=== PATIENT | male | born 1935 | race Caucasian/White ===

== ENCOUNTER 2023-09-18 09:07 | Day surgery (SDC) | payer MEDICARE, SELFPAY ==
[2023-09-04 12:09] VITALS: BP 140/77; PULSE 65; RESP 18; TEMP 36.2; O2SAT 96; BMI 30.3
[2023-09-18] VITALS (20 sets, daily range): BP systolic 123–165; BP diastolic 67–87; PULSE 55–90; RESP 12–20; TEMP 33–36.7; O2SAT 93–97; BMI 30.1; BMI 32.1
--- OUTSIDE RECORDS SUMMARY | 2023-09-18 09:30 | XMS_ITS | CCD ---
Author Name Unknown Address [email or web address] [place] [address] Organization [facility] Care Team Providers Care 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 Name Role Phone OSMAR ELDER Primary Care Physician [phone] OSMAR ELDER Attending Unavailable OSMAR ELDER Referring Unavailable Jerrod CROFT, Osmar Rivera Unavailable Osmar Elder MD Primary Care Provider [phone] Niya CROFT, Ramos Thacker Unavailable [phone] Dang Warren MD Unavailable Elisabeth Plaza MD Unavailable [phone] Niranjan WHITING Attending Unavailable WHITING, Niranjan Hugo Attending Unavailable WHITING, Niranjan Hugo Attending Unavailable WHITING, Niranjan Hugo Attending Unavailable ELISABETH NAGEL Attending Unavailable WHITING, Niranjan Hugo Attending Unavailable WHITING, Niranjan Hugo Admitting Unavailable Niranjan WHITING Attending Unavailable Allergies Allergy Classification Reported Allergen(s) Allergy Type Date of Onset Reaction(s) Facility (5 sources) Amoxicillin; Translations: [amoxicillin] Drug Allergy 3 Eruption of skin (disorder), Rash [facility] (4 sources) Penicillins; Translations: [penicillins] Drug allergy Eruption of skin (disorder) [facility] (1 source) Penicillin V Drug Allergy 3 Rash [facility] (1 source) Streptomycin Drug Allergy 9 [facility] Medications Current Medications Medication Drug Class(es) Dates Sig (Normalized) Sig (Original) [id number] actuat albuterol 0.09 mg/actuat metered dose inhaler (1 source) beta2-Adrenergi c Agonist Start: 01-09-2023 take 2 puff(s) by mouth every six hours as needed albuterol HFA 90 mcg/act inhaler Indications: Asthma, unspecified asthma severity, unspecified whether complicated, unspecified whether persistent ([facility]) INHALE 2 PUFFS BY MOUTH EVERY 6 HOURS NEEDED 8.5 g 3 01/09/2023 Active cholecalciferol 0.025 mg oral tablet (1 source) Vitamin D cholecalciferol (Vitamin D3) 25 MCG (1000 UT) tablet 1 (one) time each day at the same time. 0 Active doxycycline hyclate 100 mg oral capsule (2 sources) Tetracycline-cl ass Drug Start: 08-25-2023 End: 09-01-2023 take 1 capsule by mouth once daily doxycycline hyclate 100 mg Cap 100 mg = 1 cap(s), Oral, Daily, X 7 day(s), # 7 cap(s), Refills(s) 0, Pharmacy: [facility]/pharmacy #[id number], 173, cm, 07/29/23 13:54:00 EST, Height/Length Dosing, 85.5, kg, 07/29/23 13:54:00 EST, Weight Dosing Start Date: 08/25/23 Stop Date: 09/01/23 Status: Ordered Start: 06-05-2022 take 1 tablet by orion th twice daily doxycycline hyclate 100 mg Tab 100 mg = 1 tab(s), Oral, BID, # 28 tab(s), Refills(s) 0, Pharmacy: [facility]/pharmacy #[id number], 173, cm, 06/05/22 11:39:00 EST, Height/Length Dosing, 84, kg, 06/05/22 11:39:00 EST, Weight Dosing Start Date: 06/05/22 Status: Ordered DULoxetine 30 mg delayed release oral capsule (3 sources) Serotonin and Norepinephrine Reuptake Inhibitor Start: 04-16-2023 End: 04-10-2024 duloxetine 30 mg oral delayed release capsule 30 mg = 1 cap(s) Start Date: 05/20/23 Status: Ordered fluorouracil 50 mg/ml topical cream (1 source) Nucleoside Metabolic Inhibitor Start: 02-27-2023 fluorouracil (Efudex) 5 % cream Apply 1 application topically Daily as needed. 0 02/27/2023 Active rosuvastatin calcium 10 mg oral tablet (4 sources) HMG-CoA Reductase Inhibitor Start: 06-05-2022 take 1 tablet by mouth once daily rosuvastatin (Crestor) 10 MG tablet Indications: Hyperlipidemia, unspecified (CMS/HCC) TAKE 1 TABLET BY MOUTH EVERY DAY 90 tablet 3 02/06/2023 Active sildenafil 100 mg oral tablet (1 source) Phosphodiesterase 5 Inhibitor Start: 03-20-2023 End: 03-19-2024 take 0.5-1 tablets by mouth once daily as needed sildenafil (Viagra) 100 MG tablet Indications: Other male erectile dysfunction Take 0.5-1 tablets (50-100 mg) by mouth Daily as needed for erectile dysfunction. 30 tablet 3 03/20/2023 03/19/2024 Active Testosterone (4 sources) Androgen Start: 09-02-2019 apply 1.25 g topically once daily in the morning AndroGel 1.25 g Topical, qAM, Refills(s) 0 Start Date: 09/02/19 Status: Ordered testosterone (An drogel) 25 MG/2.5GM (1%) gel Place 25 mg on the skin See administration instructions. Every other day 0 Active triamcinolone acetonide 1 mg/ml topical cream (1 source) Corticosteroid Start: 02-27-2023 triamcinolone (Kenalog) 0.1 % cream Apply 1 application topically 2 (two) times a day as needed. 0 02/27/2023 Active vitamin B12 (3 sources) Vitamin B12 Start: 09-02-2019 Vitamin B12 1, 000 mcg, Refills(s) 0 Start Date: 09/02/19 Status: Ordered Vitamin D3 (3 sources) Start: 09-20-2020 Vitamin D3 25 mcg Start Date: 09/20/20 Status: Ordered Problems Active Problems Problem Classification Problem Date Documented Date Episodic/Chronic Asthma (1 source) Mild intermittent asthma; Translations: [Mild intermittent asthma, uncomplicated] Onset: 03-14-2023 08-08-2023 Chronic Calculus of urinary tract (6 sources) Kidney stone 02-29-2020 Episodic Disorders of lipid metabolism (1 source) Pure hypercholesterolemia; Translations: [Pure hypercholesterolemia, unspecified] Onset: 03-14-2023 03-20-2023 Chronic Esophageal disorders (4 sources) Gastroesophageal reflux disease; Translations: [Gastroesophageal reflux disease without esophagitis] Onset: 03-14-2023 02-29-2020 Chronic Genitourinary symptoms and ill-defined conditions (6 sources) Urge incontinence of urine 02-29-2020 Chronic Genitourinary symptoms and ill-defined conditions (6 sources) Increased frequency of urination; Translations: [Nocturia] 02-29-2020 Episodic Hyperplasia of prostate (9 sources) Benign prostatic hypertrophy with outflow obstruction; Translations: [Benign prostatic hyperplasia with lower urinary tract symptoms] Onset: 09-04-2022 Chronic Nutritional deficiencies (1 source) Vitamin D deficiency; Translations: [Vitamin D deficiency, unspecified] Onset: 03-14-2023 03-14-2023 Chronic Osteoarthritis (1 source) Degenerative joint disease involving multiple joints; Translations: [Polyosteoarthritis, unspecified] Onset: 03-14-2023 03-14-2023 Chronic Other circulatory disease (3 sources) Low blood pressure 02-29-2020 Episodic Other diseases of kidney and ureters (1 source) Urinary tract obstruction; Translations: [Other obstructive and reflux uropathy] Onset: 09-04-2022 Episodic Other endocrine disorders (2 sources) Testicular hypofunction; Translations: [Testicular hypofunction] Onset: 09-04-2022 Chronic Other endocrine disorders (3 sources) Hypogonadism 09-02-2019 Chronic Other endocrine disorders (3 sources) Male hypogonadism 02-29-2020 Chronic Other nervous system disorders (1 source) Polyneuropathy; Translations: [Polyneuropathy, unspecified] Onset: 08-08-2023 08-08-2023 Chronic Other nutritional; endocrine; and metabolic disorders (3 sources) Body mass index 25-29 - overweight 03-21-2020 Episodic Other screening for suspected conditions (not mental disorders or infectious disease) (6 sources) Decreased testosterone level ; Translations: [Elevated cholesterol/high density lipoprotein ratio] 02-29-2020 Episodic Unclassified (3 sources) Drug therapy finding 02-29-2020 Urinary tract infections (4 sources) Urinary tract infectious disease; Translations: [Urinary tract infection, site not specified] Onset: 09-04-2022 Episodic Past or Other Problems Problem Classification Problem Date Documented Da te Episodic/Chronic Diabetes mellitus without complication (4 sources) Glycosuria; Translations: [Prediabetes] Onset: 03-14-2023 Resolved: 03-14-2023 05-20-2023 Episodic Other endocrine disorders (1 source) Hypotestosteronism ; Translations: [Endocrine disorder, unspecified] Onset: 03-14-2023 03-14-2023 Episodic Spondylosis; intervertebral disc disorders; other back problems (1 source) Spinal stenosis of lumbar region; Translations: [Spinal stenosis, lumbar region without neurogenic claudication] Onset: 02-14-2021 08-08-2023 Episodic Unclassified (3 sources) Frequency (attribute) 09-02-2019 Results Test Name Value Interpretation Reference Range Facility ECG 12-Leadon 09-05-2023 ECG 12-Lead [id number] IFF Normal [facility] Lab Reportson 09-05-2023 Lab Reports [id number] IFF Normal [facility] ALL CBC WITH AUTO DIFFon BASOPHILS ABSOLUTE AUTO 0.1 [facility] Basophils/100 WBC (Bld) 1.0 % 0.2 - 2.0 % [facility] Eosinophils/100 WBC (Bld) 4.6 % 0.9 - 7.0 % [facility] Erythrocyte distribution width (RBC) [Ratio] 12.4 % 11.0 - 15.0 % [facility] Hematocrit (Bld) [Volume fraction] 40.6 % Low 42.0 - 54.0 % [facility] Hemoglobin (Bld) [Mass/Vol] 12.8 g/dL Low 14.0 - 18.0 g/dL [facility] IMMATURE GRANULOCYTES ABS AUTO 0.02 [facility] Immature granulocytes/100 WBC (Bld) 0.3 % 0.0 - 0.5 % [facility] Interpretation and review of laboratory results Abnormal [facility] LYMPHOCYTES ABSOLUTE AUTO 1.9 [facility] Lymphocytes/100 WBC (Bld) 24.7 % 20.5 - 60.0 % [facility] MCH (RBC) [Entitic mass] 29.7 pg 25.9 - 34.0 pg [facility] MCHC (RBC) [Mass/Vol] 31.5 g/dL 29.9 - 35.2 g/dL [facility] MCV (RBC) [Entitic vol] 94.2 fL High 80.0 - 94.0 fL [facility] MONOCYTES ABSOLUTE AUTO 0.6 [facility] Monocytes/100 WBC (Bld) 7.5 % 1.7 - 12.0 % [facility] NEUTROPHILS ABSOLUTE AUTO 4.9 [facility] Neutrophils/100 WBC (Bld) 61.9 % 43.0 - 75.0 % [facility] Platelet mean volume (Bld) [Entitic vol] 10.3 fL 9.5 - 13.5 fL [facility] EO # 0.4 [facility] PLT 219 [facility] RBC 4.31 Low [facility] WBC 7.9 [facility] C Urineon 08-29-2023 Bacteria identified Cx Nom (U) Microbiology PROCEDURE: Urine Culture [R1] SOURCE: U CleanCatch BODY SITE: COLLECTED DATE/TIME: 08/25/2023 16:09 EST RECEIVED DATE/TIME: 08/26/2023 12:15 EST START DATE/TIME: 08/26/2023 12:15 EST FREE TEXT SOURCE: ERIC CROFT, Niranjan WHITING MD, Niranjan Hugo FINAL REPORTS Final Report [] Verified Date/Time: 08/29/2023 11:21 EST >100,000 cfu/ml Staphylococcus epidermidis SUSCEPTIBILITY RESULTS ____ LEGEND: S=Susceptible, N/R=Not Reported, Blank=Data not available, or drug not advisable or tested, I=Intermediate, ESBL=Extended spectrum beta-lactamase, R=Resistant, TFG=Thymidine-dependent strain, SRIDHAR=Beta-lactamase positive, LAUREL=mcg/m;(mg/L), S*=Predicted susceptible interp, R*=Predicted resistant interp ___ Staepi Antibiotic LAUREL Dilutn LAUREL Interp Amoxicillin/ <=4/2 R Clavulanate Ampicillin >8 R Ampicillin/ <=8/4 R Sulbactam Cefazolin <=8 R Ciprofloxacin >2 R Daptomycin <=1 S Gentamicin <=4 S Levofloxacin >4 R Linezolid <=2 S Nitrofurantoin <=32 S Oxacillin >2 R Penicillin >8 R Rifampin <=1 S Tetracycline <=4 S Trimethoprim/ >2/38 R Sulfa Vancomycin 1 S Performing Locations R1: This test was performed at: [facility], [address] [place] [address], [facility]- , , [facility] Comment on above: Performed By: #### 2 [id number] #### [facility] [address] [place] [address] Consent for Procedure/Surger yon 08-07-2023 Consent for Procedure/Surgery [id number] IFF [facility] Consent for Procedure/Surger yon 07-31-2023 Consent for Procedure/Surgery [id number] TIFF [facility] Ambulatory Visit Summaryon 0 07-29-2023 Ambulatory Visit Summary DENI JULIAN :1935 Visit Date:07/29/2023 Ambulatory Visit Instructions Your Diagnosis BPH with obstruction/lower urinary tract symptoms Hypogonadism male Your Care Team Attending Physician - ERIC CROFT, Niranjan Hugo Primary Care Physician - OSMAR ELDER MD This Is Your Medications List Contact prescribing physician if questions or concerns cholecalciferol (Vitamin D3) cyanocobalamin (Vitamin B12) duloxetine (duloxetine 30 mg oral delayed release capsule) rosuvastatin (rosuvastatin 10 mg Tab) testosterone (AndroGel 1.25 g) [Image Removed: STOP]Stop taking these medications ciprofloxacin (Cipro 250 mg Tab) Procedures Performed Cystoscopy (07/29/2023), Endoscopic transurethral electrovaporization of prostate (01/28/2017), Cystoscopy (12/06/2016), Cystoscopy (12/06/2016), Appendectomy, Arthroscopic knee procedure, Cholecystectomy, Hip replacement, rezum. Discharge Vitals Height 173 cm Height 68 in Weight 85.5 kg Weight 188.1 lb BMI 28.57 What to do next You Need to Schedule the Following Appointments Follow Up with ERIC CROFT, ABE Garcia When: Comments: sched TURP Where: [facility] [address], [place] [address] [phone] Medications What How Much When Instructions Unchanged cholecalciferol (Vitamin D3) 25 Microgram Contact prescribing physician if questions or concerns Unchanged cyanocobalamin (Vitamin B12) 1,000 Microgram Contact prescribing physician if questions or concerns Unchanged duloxetine (duloxetine 30 mg oral delayed release capsule) 1 Capsules Contact prescribing physician if questions or concerns Unchanged rosuvastatin (rosuvastatin 10 mg Tab) Contact prescribing physician if questions or concerns Unchanged testosterone (AndroGel 1.25 g) Topical Once a day (in the morning) Contact prescribing physician if questions or concerns What How Much When Comments Stop Taking ciprofloxacin (Cipro 250 mg Tab) 1 Tablets By Mouth Every day Take 1 tablet the day before the procedure and 1 tablet after the procedure Medications and Immunizations Administered Given lidocaine Top 2% Gel w/Appl 6 mL, 6 mL, Topical. For: BPH with obstruction/lower urinary tract symptoms Allergies amoxicillin (Itching, Rash) penicillins (Itching, Rash) Problems Ongoing - Any problem that you are currently receiving treatment for. Anticoagulated BMI 28.0-28.9,adult BPH with obstruction/lower urinary tract symptoms Frequency of urination GERD (gastroesophageal reflux disease) Glucosuria Hypogonadism male Hypotension Low testosterone Nephrolithiasis Nocturia Urge incontinence Urgency incontinence UTI (urinary tract infection) Historical - Any problem that you are no longer receiving treatment for. BPH - benign prostatic hyperplasia Elevated cholesterol/high density lipoprotein ratio Frequency Hypogonadism Nephrolithiasis Patient Survey You may receive a survey via text or e-mail asking about your office visit. Please share your experience with us by completing your survey. We appreciate your feedback and thank you for choosing us for your care. Education Materials Transurethral Resection of the Prostate, Care After The following information offers guidance on how to care for yourself after your procedure. Your health care provider may also give you more specific instructions. If you have problems or questions, contact your health care provider. What can I expect after the procedure? After the procedure, it is common to have: ? Mild pain in your lower abdomen. ? Soreness or mild discomfort in your penis or when you urinate. This is from having the catheter inserted during the procedure. ? A sudden urge to urinate (urgency). ? A need to urinate often. ? A small amount of blood in your urine. You may notice some small blood clots in your urine. These are normal. Follow these instructions at home: Medicines ? Take yzui-cnr-zkoqogl and prescription medicines only as told by your health care provider. ? If you were prescribed an antibiotic medicine, take it as told by your health care provider. Do not stop taking the antibiotic even if you start to feel better. Activity ? Rest as told by your health care provider. ? Avoid sitting for a long time without moving. Get up to take short walks every 1?2 hours. This is important to improve blood flow and breathing. Ask for help if you feel weak or unsteady. You may increase your physical activity gradually as you start to feel better. ? Do not drive or operate machinery until your health care provider says that it is safe. ? Do not ride in a car for long periods of time, or as told by your health care provider. ? Avoid intense physical activity for as long as told by your health care provider. ? Do not lift anything that is heavier than 10 lb (4.5 kg), or the limit that you are told, unti (more content not included)... Normal [facility] Patient Educationon 07-29-19 Patient Education Urology Transurethral Resection of the Prostate, Care After The following information offers guidance on how to care for yourself after your procedure. Your health care provider may also give you more specific instructions. If you have problems or questions, contact your health care provider. What can I expect after the procedure? After the procedure, it is common to have: ? Mild pain in your lower abdomen. ? Soreness or mild discomfort in your penis or when you urinate. This is from having the catheter inserted during the procedure. ? A sudden urge to urinate (urgency). ? A need to urinate often. ? A small amount of blood in your urine. You may notice some small blood clots in your urine. These are normal. Follow these instructions at home: Medicines ? Take mmnh-wsu-crjgqfg and prescription medicines only as told by your health care provider. ? If you were prescribed an antibiotic medicine, take it as told by your health care provider. Do not stop taking the antibiotic even if you start to feel better. Activity ? Rest as told by your health care provider. ? Avoid sitting for a long time without moving. Get up to take short walks every 1?2 hours. This is important to improve blood flow and breathing. Ask for help if you feel weak or unsteady. You may increase your physical activity gradually as you start to feel better. ? Do not drive or operate machinery until your health care provider says that it is safe. ? Do not ride in a car for long periods of time, or as told by your health care provider. ? Avoid intense physical activity for as long as told by your health care provider. ? Do not lift anything that is heavier than 10 lb (4.5 kg), or the limit that you are told, until your health care provider says that it is safe. ? Do not have sex until your health care provider approves. ? Return to your normal activities as told by your health care provider. Ask your health care provider what activities are safe for you. Preventing constipation You may need to take these actions to prevent or treat constipation: ? Drink enough fluid to keep your urine pale yellow. ? Take nnhs-wbn-hjpzxad or prescription medicines. ? Eat foods that are high in fiber, such as beans, whole grains, and fresh fruits and vegetables. ? Limit foods that are high in fat and processed sugars, such as fried or sweet foods. General instructions ? Do not strain when you have a bowel movement. Straining may lead to bleeding from the prostate. This may cause blood clots and trouble urinating. ? Do not use any products that contain nicotine or tobacco. These products include cigarettes, chewing tobacco, and vaping devices, such as e-cigarettes. If you need help quitting, ask your health care provider. ? If you go home with a tube draining your urine (urinary catheter), care for the catheter as told by your health care provider. ? Wear compression stockings as told by your health care provider. These stockings help to prevent blood clots and reduce swelling in your legs. ? Keep all follow-up visits. This is important. Contact a health care provider if: ? You have signs of infection, such as: ? Fever or chills. ? Urine that smells very bad. ? Swelling around your urethra that is getting worse. ? Swelling in your penis or testicles. ? You have difficulty urinating. ? You have pain that gets worse or does not improve with medicine. ? You have blood in your urine that does not go away after 1 week of resting and drinking more fluids. ? You have trouble having a bowel movement. ? You have trouble having or keeping an erection. ? No semen comes out during orgasm (dry ejaculation). ? You have a urinary catheter in place, and you have: ? Spasms or pain. ? Problems with your catheter or your catheter is blocked. Get help right away if: ? You are unable to urinate. ? You are having more blood clots in your urine instead of fewer. ? You have: ? Large blood clots. ? A lot of blood in your urine. ? Pain in your back or lower abdomen. ? You have difficulty breathing or shortness of breath. ? You develop swelling or pain in your leg. These symptoms may be an emergency. Get help right away. Call 911. ? Do not wait to see if the symptoms will go away. ? Do not drive yourself to the hospital. Summary ? After the procedure, it is common to have a small amount of blood in your urine. ? Follow restrictions about lifting and sexual activity as told by your health care provider. Ask what activities are safe for you. ? Keep all follow-up visits. This is important. This information is not intended to replace advice given to you by your health care provider. Make sure you discuss any questions you have with your health care provider. Document Revised: 04/02/2022 Document Reviewed: 04/02/2022 [employer] Patient Education ? 2022 [employer] Transurethral Resection o (more content not included)... Normal [facility] Urology Office/Clinic Noteon 07-29-2023 Urology Office/Clinic Note Chief Complaint Cystoscopy HPI Staff Cysto ABX TAKEN History of Present Illness Tests reviewed: none I have reviewed the previous health record information and history for this patient from [facility]. I have reviewed and verified the staff HPI to be accurate for this encounter. Review of Systems PHQ Score Initial Depression Screen Score: 0 SCORE ROS - Provider Constitutional: denies weight loss, denies hot flashes. Eyes: denies eye problems. Gastrointestinal: denies nausea, denies vomiting. Cardiovascular: denies chest pain or angina. Integumentary: no dryness Musculoskeletal: denies musculoskeletal symptoms. ENMT: denies otolaryngeal symptoms. Respiratory: no shortness of breath. Heme/Lymph: denies easy bleeding tendency, denies easy bruising tendency. Psychiatric: no confusion, no anxiety. Genitourinary: See HPI. Physical Exam Vitals & Measurements HT: 68 in HT: 173 cm WT: 85.5 kg WT: 188.1 lb BMI: 28.57 General Appearance: alert, no distress, well nourished, well developed male. Genitourinary: normal scrotum, normal testes, normal urethra, normal epididymis, normal vas deferens/spermatic cord. Flank Pain: none. Bladder: nonpalpable. Procedure Operative Information Anesthesia Type: Local Procedure: Local Cystoscopy Complications: None Surgical risks, benefits, details of the procedure have been explained to the patient. Full informed consent has been obtained. Intraoperative Information Prepped: Patient is brought back to the endoscopy suite. Patient is placed in supine position. Patient prepped in the usual fashion with Betadine solution. 2% Xylocaine Jelly is placed per Urethra. After waiting several minutes, the Cystoscope is introduced. The Urethra is: Normal The Prostatic Urethra is: bilobar obstruction The Bladder: Abnormal, Trabeculated: Severe (3)- multiple diverticuli. no b.t. The Ureteral orifices: Show efflux of clear urine Specimens Removed: None Removal: Cystoscope is removed. The patient tolerated it well. Postoperative Information Patient is discharged home with antibiotic coverage. Follow up arranged. Assessment/Plan 1. BPH with obstruction/lower urinary tract symptoms (N40.1: Benign prostatic hyperplasia with lower urinary tract symptoms) S/p REZUM 01/28/17. IPSS (8). Not currently talking any BPH medications. PVR 05/20/23 - 235mL. Drinks a lot of water. Does timed voids q3h. Pt had IO cysto today to evaluate for prostate regrowth since prior Rezum and to determine possible candidacy for operative intervention. Abx taken prior to procedure. Per cysto today, pt is a candidate for TURP. -Will schedule TURP. The procedural risks, benefits, details, and treatment alternatives have been discussed with the patient. These include bleeding, infection, need for blood transfusion, continued urinary difficulties, urinary leakage which could be permanent, need for catheter, retrograde ejaculation, scar tissue formation in the urinary channel or area of prostate shaving, erection problems, blood clot formation in the lower extremities which could travel to the lungs, among others. A secondary operation could also be required. Full informed consent has been obtained. Will order General anesthesia. 2. 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 Warren at [facility]). Follow-up With When Contact Information ERIC CROFT, Niranjan Hugo, L [facility] [address], [place] [phone] [phone] Additional Instructions: sched TURP Patient Education Transurethral Resection of the Prostate, Care After Transurethral Resection of the Prostate IKailey, personally scribed for Dr. Whiting on 07/29/2023 14:38:35. . Documentation recorded by the scribeKailey, accurately reflects the services(s) I performed and decisions made by me. Authenticated by Dr. Whiting on 07/29/2023 14:40:30. Problem List/Past Medical History Ongoing Anticoagulated BMI 28.0-28.9,adult BPH with obstruction/lower urinary tract symptoms Frequency of urination GERD (gastroesophageal reflux disease) Glucosuria Hypogonadism male Hypotension Low testosterone Nephrolithiasis Nocturia Urge incontinence Urgency incontinence UTI (urinary tract infection) Historical BPH - benign prostatic hyperplasia Elevated cholesterol/high density lipoprotein ratio Frequency Hypogonadism Nephrolithiasis Procedure/Surgical History Cystoscopy (07/29/2023), Endoscopic transurethral electrovaporization of prostate (01/28/2017), Cystoscopy (12/06/2016), Cystoscopy (12/06/2016), Appendectomy, Arthroscopic knee procedure, Cholecystectomy, Hip replacement, rezum. Medications AndroGel 1.25 g, Topical, qAM duloxetine 30 mg oral delayed release capsule, 30 mg= 1 cap(s) rosuvastatin 10 mg Tab Vitamin B12, 1000 mcg Vitamin D3, 25 mcg Allergies amoxic (more content not included)... Normal [facility] Comment on above: Result Comment: Elec tronically Signed By: Niranjan WHITING MD\.br\Date and Time Signed: 07/29/23 14:40 EST\.br\Electronically Co-Signed By: Kailey Barone\.br\Date and Time Co-Signed: 07/29/23 14:38 EST Urology Office/Clinic Noteon 05-27-2023 Urology Office/Clinic Note HPI Staff PRW pt. PVR 235mL Last seen in our office by PRW 09/04/22 due to UTI, BPH & Hypogonadism. Plan at that time was to return PRN. *AndroGel 1.62% 1.5 pump 3x a week (managed by Dr. Warren at [facility]) Pt is here today due to leakage. S/P REZUM done on 01/28/17 (Nothing new on [facility]) Dysuria: no Incomplete bladder emptying: no Hematuria: no Frequency: every 3 hours Urgency: yes, Pt. states if he hears water running Nocturia: 1x Stream: Pt. states if he is laying down he will have some hesitancy. Post void dripping: mild Wearing pads/ Depends: no Urge incontinence: yes, if Pt. waits to long Stress incontinence: no Incontinence without Sensory Awareness: no Abdominal pain: no Flank pain: no History of Present Illness staff HPI reviewed and agree. Review of Systems PHQ Score Initial Depression Screen Score: 0 no fever, chills, malaise, myalgia. no rash/lesions. no chest pain, palpitations, or SOB. no abdominal pain, nausea, vomiting. no unilateral calf swelling, redness, pain Physical Exam Vitals & Measurements HT: 68 in HT: 173 cm WT: 85.5 kg WT: 188.1 lb BMI: 28.57 General: nontoxic, NAD Mouth: moist mucosa Lungs: normal respiratory effort Cardio: regular rate, good distal perfusion Abdomen: nondistended, no suprapubic distention or tenderness, no CVA tenderness Neurologic: Grossly normal Skin: No rashes or suspicious lesions Assessment/Plan 1. BPH with obstruction/lower urinary tract symptoms (N40.1: Benign prostatic hyperplasia with lower urinary tract symptoms) S/P REZUM done on 01/28/17 PVR today 235mL Pt felt empty today after urination. Pt reports drinking a lot of water and doing timed voids q3h. C/o urgency and UUI. worse since this summer. also weak stream and some hesitancy. IPSS(8) QoL(1) Not currently talking any BPH medications. Will start by reassessing his prostatic urethra since it's been 6 yrs since his Rezum he could certainly have some regrowth contributing to these sx. Tx options pending findings. Will schedule cysto for outlet procedure candidacy with Dr. Whiting. The risks and benefits for cystoscopy have been discussed. The risks include bleeding, infection, and irritation of the bladder and urinary channel, among others. The patient, after being informed of procedural details and after questions have been answered, wishes to proceed. Full informed consent has been obtained. Will order Local anesthesia. 2. Hypogonadism male (E29.1: Testicular hypofunction) Pt continues AndroGel 1.62% 1.5 pump 3x a week (managed by Dr. Warren at [facility]) Testosterone: 09/15/20 - 3.13 No recent T level on record. 3. Glucosuria (R81: Glycosuria) UA today shows trace glucose. Most recent A1C from 12/30/2019 - 6.1 Pt reports being prediabetic at recent PCP visit. Eats DM diet with who is a diabetic. Educated patient that glucose can contribute to increased frequency. Follow-up With When Contact Information SHONA RUVALCABA, ELISABETH Roberto, URL [address] [place] [address] [phone] Additional Instructions: schedule cysto Patient Education Cystoscopy Documentation recorded by the denny Barone accurately reflects the services(s) I performed and decisions made by me. Authenticated by Elisabeth Nagel PA-C on 05/26/2023 22:05:30. Kailey Todd, personally scribed for Elisabeth Nagel PA-C on 05/20/2023 15:51:14. . Problem List/Past Medical History Ongoing Anticoagulated BMI 28.0-28.9,adult BPH with obstruction/lower urinary tract symptoms Frequency of urination GERD (gastroesophageal reflux disease) Glucosuria Hypogonadism male Hypotension Low testosterone Nephrolithiasis Nocturia Urge incontinence Urgency incontinence UTI (urinary tract infection) Historical BPH - benign prostatic hyperplasia Elevated cholesterol/high density lipoprotein ratio Frequency Hypogonadism Nephrolithiasis Procedure/Surgical History Endoscopic transurethral electrovaporization of prostate (01/28/2017), Cystoscopy (12/06/2016), Cystoscopy (12/06/2016), Appendectomy, Arthroscopic knee procedure, Cholecystectomy, Hip replacement, rezum. Medications AndroGel 1.25 g, Topical, qAM doxycycline hyclate 100 mg Tab, 100 mg= 1 tab(s), Oral, BID, Not taking duloxetine 30 mg oral delayed release capsule, 30 mg= 1 cap(s) rosuvastatin 10 mg Tab Vitamin B12, 1000 mcg Vitamin D3, 25 mcg Allergies amoxicillin (Itching, Rash) penicillins (Itching, Rash) Social History Tobacco Former smoker, quit more than 30 days ago Tobacco Use:. Never Smokeless Tobacco Use:., 09/04/2022 Family History Primary malignant neoplasm of female breast: Mother. Immunizations Vaccine Date Status Comments SARS-CoV-2 (COVID-19) [id number] 04/24/2022 Recorded diphtheria/pertussis, acel/tetanus adult 04/04/2022 Recorded influenza virus vaccine, inactivated 03/28/2022 Recorded SA (more content not included)... Normal [facility] Comment on above: Result Comment: Elec tronically Signed By: ELISABETH NAGEL PA-C\.br\Date and Time Signed: 05/26/23 22:05 EST\.br\Electronically Co-Signed By: Kailey Barone\.br\Date and Time Co-Signed: 05/20/23 15:51 EDT Ambulatory Visit Summaryon 1 Ambulatory Visit Summary DENI JULIAN :1935 Visit Date:05/20/2023 Ambulatory Visit Instructions Your Diagnosis BPH with obstruction/lower urinary tract symptoms Hypogonadism male Glucosuria Tests Performed Urnls Dip Stick Auto w/o Microscopy POC 36491 Your Care Team Attending Physician - ELISABETH NAGEL PA-C Primary Care Physician - OSMAR ELDER MD This Is Your Medications List Contact prescribing physician if questions or concerns cholecalciferol (Vitamin D3) cyanocobalamin (Vitamin B12) doxycycline (doxycycline hyclate 100 mg Tab) duloxetine (duloxetine 30 mg oral delayed release capsule) rosuvastatin (rosuvastatin 10 mg Tab) testosterone (AndroGel 1.25 g) Procedures Performed Endoscopic transurethral electrovaporization of prostate (01/28/2017), Cystoscopy (12/06/2016), Cystoscopy (12/06/2016), Appendectomy, Arthroscopic knee procedure, Cholecystectomy, Hip replacement, rezum. Discharge Vitals Height 173 cm Height 68 in Weight 85.5 kg Weight 188.1 lb BMI 28.57 What to do next You Need to Schedule the Following Appointments Follow Up with ELISABETH NAGEL PA-C, URL When: Comments: schedule cysto Where: [address] [facility] [address] [phone] Medications What How Much When Instructions Unchanged cholecalciferol (Vitamin D3) 25 Microgram Contact prescribing physician if questions or concerns Unchanged cyanocobalamin (Vitamin B12) 1,000 Microgram Contact prescribing physician if questions or concerns Unchanged doxycycline (doxycycline hyclate 100 mg Tab) 1 Tablets By Mouth 2 times a day Contact prescribing physician if questions or concerns Unchanged duloxetine (duloxetine 30 mg oral delayed release capsule) 1 Capsules Contact prescribing physician if questions or concerns Unchanged rosuvastatin (rosuvastatin 10 mg Tab) Contact prescribing physician if questions or concerns Unchanged testosterone (AndroGel 1.25 g) Topical Once a day (in the morning) Contact prescribing physician if questions or concerns Test Results Urnls Dip Stick Auto w/o Microscopy POC 47461 (05/20/2023) Bilirubin Urine Dipstick - Negative Blood Urine Dipstick - Negative Glucose Urine Dipstick - Trace 100 mg/dl Ketones Urine Dipstick - Negative Leukocytes Urine Dipstick - Negative Nitrite Urine Dipstick - Negative Protein Urine Dipstick - Negative Specific [place] Urine Dipstick - 1.020 Urine Appearance Urine Dipstick - Clear Urine Color Urine Dipstick - Yellow Urobilinogen Urine Dipstick - Normal 0.2-1 EU/dl pH Urine Dipstick - 6 Allergies amoxicillin (Itching, Rash) penicillins (Itching, Rash) Problems Ongoing - Any problem that you are currently receiving treatment for. Anticoagulated BMI 28.0-28.9,adult BPH with obstruction/lower urinary tract symptoms Frequency of urination GERD (gastroesophageal reflux disease) Glucosuria Hypogonadism male Hypotension Low testosterone Nephrolithiasis Nocturia Urge incontinence Urgency incontinence UTI (urinary tract infection) Historical - Any problem that you are no longer receiving treatment for. BPH - benign prostatic hyperplasia Elevated cholesterol/high density lipoprotein ratio Frequency Hypogonadism Nephrolithiasis Patient Survey You may receive a survey via text or e-mail asking about your office visit. Please share your experience with us by completing your survey. We appreciate your feedback and thank you for choosing us for your care. Education Materials Cystoscopy Cystoscopy is a procedure that is used to help diagnose and sometimes treat conditions that affect the lower urinary tract. The lower urinary tract includes the bladder and the urethra. The urethra is the tube that drains urine from the bladder. Cystoscopy is done using a thin, tube-shaped instrument with a light and camera at the end (cystoscope). The cystoscope may be hard or flexible, depending on the goal of the procedure. The cystoscope is inserted through the urethra, into the bladder. Cystoscopy may be recommended if you have: ? Urinary tract infections that keep coming back. ? Blood in the urine (hematuria). ? An inability to control when you urinate (urinary incontinence) or an overactive bladder. ? Unusual cells found in a urine sample. ? A blockage in the urethra, such as a urinary stone. ? Painful urination. ? An abnormality in the bladder found during an intravenous pyelogram (IVP) or CT scan. Cystoscopy may also be done to remove a sample of tissue to be examined under a microscope (biopsy). Tell a health care provider about: ? Any allergies you have. ? All medicines you are taking, including vitamins, herbs, eye drops, creams, and exxg-hwq-hcgyqyx medicines. ? Any problems you or family members have had with anesthetic medicines. ? Any blood disorders you have. ? Any surgeries you have had. ? Any medical conditions you have. (more content not included)... Normal [facility] [place] 03-06-2022 [facility] [address] [place] [address] Office Visit Report Signed Patient Name: Deni Julian 89 Date of : 1935 Age/Sex: 87 / M Date of Service: Location: [facility] Ear, Nose Throat Attending physician: Mariam Jaffe MD Intake Vital Signs 03/06/22 10:42 Height 5 ft 7 in Weight 180 lb BMI 28.1 BP 122/68 BP Location Left Brachial BP Position Sitting BP Cuff Size Adult BP Source Manual Cuff Respiration 18 Pulse 58 L Temp 98.0 F Pulse Oximetry (%) 97 Intake Visit Reasons: Fluid in ear, can't hear; self referral Accompanied by: Self / Same As Patient Allergies Allergy/AdvReac Type Severity Reaction Status Date / Time Penicillins Allergy Intermediate Rash Verified 03/06/22 10:34 Current Medication List - Last Reconciled 03/06/22 by Naveed Monreal cholecalciferol (vitamin D3) 25 mcg (1,000 unit) capsule 25 mcg PO DAILY rosuvastatin 10 mg tablet 10 mg PO DAILY testosterone 20.25 mg/1.25 gram (1.62 %) transdermal gel pump (AndroGel) 1 pump topical .every other day vitamin B complex (B Complex-Vitamin B12) 1 tab PO DAILY Referred by: self Followed by:: Dr. Osmar Elder Nurse's Note: Patient reports loss of hearing in left ear over the weekend, has not had prior treatment. Wonders if he got water in his ear while showering. No ear pain in left ear. No ENT history minus childhood. Does wear hearing aids, has not had hearing test for 3 years. Concerned about fluid in ear. Does get wax often in both ears. [facility] Medical History (Updated 03/06/22 @ 11:16 by Mariam Jaffe MD) Cataract of left eye Surgical History (Updated 03/06/22 @ 10:38 by Naveed Monreal) History of appendectomy ( 194) History of cataract surgery ( 2020) History of cholecystectomy ( 1999) History of hip replacement Social History AUDIT-C How Often do you Have a Drink Containing Alcohol: 2-3 Times a Week How Many Standard Drinks Containing Alcohol do you Have on a Typical Day: 1 or 2 How Often do you Have Six or More Drinks on One Occasion: Never AUDIT-C Alcohol Total Score: 3 HPI HPI Comments History of Present Illness Details 87-year-old male patient with prior neural hearing aids who came for assessment of left ear fullness. The patient states that he was doing fine until Friday when he started to have left-sided ear fullness and decreased hearing after going out of the shower. [facility]. Review of Systems Constitutional Denies: fever(s), chills or fatigue Cardiovascular Denies: dyspnea Respiratory Denies: dyspnea, cough or wheezing Gastrointestinal Denies: nausea, vomiting or diarrhea Musculoskeletal Denies: muscle weakness Neurological Denies: headache(s) or weakness in extremities Endocrine Denies: fatigue Allergic/Immunologic Denies: tongue swelling or wheezing Physical Exam Narrative Exam Narrative: Bilateral cerumen obstructing the ear canal bilaterally Constitutional Common normals: no acute distress, patient oriented x3 and alert General appearance: cooperative and well kempt Eye General eye: appearance normal, both eyes and all related structures Chest Common normals: normal inspection of the chest Respiratory Common normals: normal respiratory effort, Normal inspection, No retractions and No use of accessory muscles Common normals: Deferred Extremity Common normals: normal to inspection Neuro Common normals: alert and patient oriented x3 Sensorium/orientation: Yes alert Psych Appearance: Yes grossly normal and Yes well kempt Assessment Plan Assessment Plan (1) Excessive cerumen in both ear canals: Code(s): H61.23 - Impacted cerumen, bilateral Category: Medical Plan Detail Assessment: follow-up as needed Office Procedures Office Procedure Procedure Completed?: Yes Details: Procedure: Cerumen removal of external auditory canals bilaterally Indication: Otoscopic examination of the tympanic membrane is not possible due to cerumen impaction in the ear canal and the removal of the impacted cerumen required the expertise of physician that was personally performed by the physician Procedure note: under binocular microscopic visualization a speculum was placed in the ear canal and the cerumen was visualized .The cerumen was removed by suction Roe size 5 , 7 and alligator forcepsthe procedure was successful Physical examination after cerumen removal: Normal looking tympanic membrane and ear canal bilaterally. Patient status: The patient tolerated the procedure well and expressed resolving of his symptoms completely Complications: There was no complication Dictated By: Mariam Jaffe MD 03/06/22 1033 (more content not included)... Normal [facility] echo transthoracicon [facility] echo transthoracic [facility] Main [place] [address] [place] [id number] Echocardiogram Signed Patient: Deni Julian MR#: [id number] : 1935 Acct:[id number] Age/Sex: 85 / M ADM Date: 09/15/20 Loc: Room: Type: [facility] CL Attending Dr: Osmar Elder MD Ordering Provider: Osmar Elder MD Date of Service: 09/15/20 [facility] echo transthoracic: EDEMA, CHEST PAIN Copies to: MD Osmar Castillo MD Weight: 181 lb Performed By: Jammie Luz GEORGE BSA: 1.9 m2 HR: 55 Reason For Study: EDEMA, CHEST PAIN History: Hyperlipidemia Interpretation Summary Ejection Fraction = 55-60%. The left ventricular size, thickness and function are normal The left ventricular wall motion is normal. Normal transthoracic echocardiogram. Compared to prior study, there is no significant change. Procedure/Quality: A two-dimensional transthoracic echocardiogram with color flow and Doppler was performed. Left Ventricle: The left ventricular size, thickness and function are normal. Ejection Fraction = 55-60%. The left ventricular wall motion is normal. Left Atrium: The left atrium appears normal in size. Right Atrium: The right atrium appears normal in size. Right Ventricle: The right ventricular size, thickness and function are normal. Aortic Valve: The aortic valve is normal in structure and function. No aortic regurgitation is present. Mitral Valve: The mitral valve is normal in structure and function. There is no mitral regurgitation noted. Tricuspid Valve: The tricuspid valve is normal in structure and function. No tricuspid regurgitation. Pulmonic Valve: The pulmonic valve is normal in structure and function. Arteries: The aortic root is normal size. Pericardium/Pleura: No pericardial effusion seen. There is no pleural effusion. IVC/Hepatic Viens: The inferior vena cava is normal in size, with a normal collapsibility index. Measurements with Normals IVSd: 0.87 cm (0.7-1.1 cm)LVIDd: 4.4 cm (3.7-5.4 cm) LVPWd: 0.87 cm (0.7-1.1 cm)LVIDs: 2.9 cm (2.3-3.6 cm) LA dimension: 3.1 cm(2.3-4.0 cm)Ao root diam: 3.5 cm(2.0-3.2 cm) Doppler with Normals RVSP(TR): 26.5 mmHg (18-35mmHg) LV V1 max: 99.0 cm/sec (0.7-1.7m/s)MV E max marga: 62.9 cm/sec(0.8-1.3m/s) MV A max marga: 93.0 cm/sec(0.0-0.0m/s) MV E/A: 0.68 (<1.5) MMode/2D Measurements Calculations RVDd: 3.9 cm FS: 34.0 % Ao root area: LVOT diam: 2.1 cm EDV(Teich): 9.4 cm2 LVOT area: 3.5 cm2 85.6 ml ESV(Teich): 31.5 ml EF(Teich): 63.2 % __ LVLd ap4: 8.1 cm SV(MOD-sp4): LAV(MOD-sp4): LA A2 area: 18.8 cm2 EDV(MOD-sp4): 59.1 ml 39.5 ml 97.1 ml LAV(MOD-sp2): LA A4 area: 17.9 cm2 LVLs ap4: 7.0 cm 49.1 ml LA length (vol): ESV(MOD-sp4): 6.3 cm 38.0 ml LA vol: 45.4 ml EF(MOD-sp4): LA vol index: 60.9 % 23.8 ml/m2 Doppler Measurements Calculations MV dec time: E/E' lat: 7.1 MV dec slope: Ao V2 max: 0.22 sec E/E' med: 8.3 117.3 cm/sec 283.6 cm/sec2 Ao max P.5 mmHg Ao mean P.4 mmHg Ao V2 mean: 87.7 cm/sec Ao V2 VTI: 21.3 cm DAVID(I,D): 2.9 cm2 DAVID(V,D): 3.0 cm2 __ LV V1 max PG: TV max PG: TR max marga: 3.9 mmHg 23.0 mmHg 242.2 cm/sec LV V1 mean PG: TR max P.5 mmHg 2.0 mmHg RAP systole: 3.0 mmHg LV V1 mean: 66.3 cm/sec LV V1 VTI: 17.7 cm Transcribed By: SUDHAKAR 09/16/20 1200 Dictated By: Shae Hoang MD 09/15/20 1541 Signed By: 09/16/20 1200 Normal [facility] PSA Total (Not a Screen)on 0 09-15-2020 PSA Total (Not a Screen) 1.240 ng/mL Normal 0.000-4.000 [facility] Comment on above: Result Comment: PERF ORMED BY: [place] [id number] PATHOLOGIST WORK CHECKER CAMRON ARENAS M.D. Performed By: #### T EST, PSATOTAL #### [facility] [address] [place], [place] [id number] [facility] Testosteroneon 09-15-2020 Testosterone 3.13 ng/mL Normal 1.75-7.81 [facility] Comment on above: Result Comment: PERF ORMED BY: [place] [id number] PATHOLOGIST WORK CHECKER CAMRON ARENAS M.D. Performed By: #### T EST, PSATOTAL #### [facility] [address] [place] [address] [facility] Coding Summaryon 06-13-2020 Coding Summary CODING DATE: 020 [facility] STATUS: Home PAYOR: Medicare MC ADMIT DX: REASON FOR VISIT DX: R53.1 Weakness FINAL DX: PRINCIPAL: R53.1 Weakness SECONDARY: PYMT PROC APC STAT DESCRIPTION DOCTOR NAME DATE NOTE: The code number assigned matches the documented diagnosis and / or procedure in the patient's chart. However, the narrative phrase printed from the coding software may appear abbreviated, or result in slightly different terminology. Coded By: Elisabeth Rayo Date Saved: 06/13/2020 09:58 am [facility] Provider Orderson 06-12-2020 Provider Orders [id number] TGTIFF [facility] .Auto Diff 1on 06-09-2020 Auto [place] % 12 % Normal -12 [facility] Comment on above: Performed By: #### 1 [id number] #### [facility] (DEFAULT) [address] [place] [address] Baso Abs# 0.0 x10 Normal 0.0-0.2 [facility] Comment on above: Performed By: #### 1 [id number], [id number] #### [facility] (DEFAULT) [address] [place] [address] Basophils/100 WBC (Bld) 0.7 % Normal 0.2-2.0 [facility] Comment on above: Performed By: #### 1 [id number] #### [facility] (DEFAULT) [address] [place] [address] Eos Abs# 0.2 x10 Normal 0.0-0.4 [facility] Comment on above: Performed By: #### 1 [id number], [id number] #### [facility] (DEFAULT) [address] [place] [address]60 Eosinophils/100 WBC (Bld) 2.4 % Normal 0.9-4.0 [facility] Comment on above: Performed By: #### 1 [id number], [id number], [id number] #### [facility] (DEFAULT) [address] [place] [address] Lymphocytes (Bld) [#/Vol] 2.3 x10 Normal 1.3-2.9 [facility] Comment on above: Performed By: #### 1 [id number], [id number] #### [facility] (DEFAULT) [address] [place] [address] Lymphocytes/100 WBC (Bld) 32 % Normal 14-48 [facility] Comment on above: Performed By: #### 1 [id number], [id number], [id number] #### [facility] (DEFAULT) [address] [place] [address] [place] Abs# 0.8 x10 Normal 0.0-0.8 [facility] Comment on above: Performed By: #### 1 [id number], [id number], [id number] #### [facility] (DEFAULT) [address] [place] [address] Neut Abs# 3.8 x10 Normal 1.5-9.2 [facility] Comment on above: Performed By: #### 1 [id number], [id number], [id number] #### [facility] (DEFAULT) [address] [place] [address] Neutrophils/100 WBC (Bld) 52 % Normal 44-88 [facility] [facility] Comment on above: Performed By: #### 1 [id number], [id number], [id number] #### [facility] (DEFAULT) [address] [place] [address] CBC w/ Auto Diffon 11-20-202 0 Erythrocyte distribution width (RBC) [Ratio] 13.3 % Normal 11.5-15.0 [facility] Comment on above: Performed By: #### 1 [id number], [id number], [id number] #### [facility] (DEFAULT) [address] [place] [address] Hematocrit (Bld) [Volume fraction] 41.0 % Normal 34.8-51.9 [facility] Comment on above: Performed By: #### 1 [id number], [id number], [id number] #### [facility] (DEFAULT) [address] [place] [address] Hemoglobin (Bld) [Mass/Vol] 13.3 g/dL Normal 11.8-17.7 [facility] Comment on above: Performed By: #### 1 [id number], [id number], [id number] #### [facility] (DEFAULT) [address] [place] [address]8925 Man Diff? Auto Normal [facility] Comment on above: Performed By: #### 1 [id number], [id number], [id number] #### [facility] (DEFAULT) [address] [place] [address] 96770 MCH (RBC) [Entitic mass] 30 pg Normal 24-34 [facility] Comment on above: Performed By: #### 1 [id number], [id number], [id number] #### [facility] (DEFAULT) [address] [place] [address] 15255 MCHC (RBC) [Mass/Vol] 32 g/dL Normal 26-37 [facility] Comment on above: Performed By: #### 1 [id number], [id number], [id number] #### [facility] (DEFAULT) [address] [place] [address] 07670 MCV (RBC) [Entitic vol] 92 fL Normal 81-100 [facility] Comment on above: Performed By: #### 1 [id number], [id number], [id number] #### [facility] (DEFAULT) [address] [place] [address] 69448 Platelet mean volume (Bld) [Entitic vol] 8.9 fL Normal 6.3-10.2 [facility] Comment on above: Performed By: #### 1 [id number], [id number], [id number] #### [facility] (DEFAULT) [address] [place] [address] 79005 Platelets (Bld) [#/Vol] 341 x10 Normal 138-427 [facility] Comment on above: Performed By: #### 1 [id number], [id number], [id number] #### [facility] (DEFAULT) [address] [place] [address] 88100 RBC (Bld) [#/Vol] 4.47 x10 Normal 3.70-5.30 [facility] Comment on above: Performed By: #### 1 [id number], [id number], [id number] #### [facility] (DEFAULT) [address] [place] [address] 90265 WBC (Bld) [#/Vol] 7.2 x10 [facility] Comment on above: Performed By: #### 1 [id number], [id number], [id number] #### [facility] (DEFAULT) [address] [place] [id number] Standardon 06-09-2020 eGFR Non AA >60 [facility] Comment on above: Performed By: #### 1 [id number], [id number], [id number] #### [facility] (DEFAULT) [address] [place] [address] 32353 eGFR AA >60 [facility] Comment on above: Result Comment: Slurry Tank Tender lizeth Kidney disease could be indicated at eGFRs of less than 60 ml/min/1.73m2. Kidney Failure is indicated at less than 15 ml/min/1.73m2 Performed By: #### 1 [id number], [id number], [id number] #### [facility] (DEFAULT) [address] [place] [address] 90272 Albumin [Mass/Vol] 3.6 g/dL Normal 3.5-5.0 [facility] Comment on above: Performed By: #### 1 [id number], [id number], [id number] #### [facility] (DEFAULT) [address] [place] [address] 17171 Albumin/Globulin [Mass ratio] 0.8 {ratio} Low 1.4-2.6 [facility] Comment on above: Performed By: #### 1 [id number], [id number], [id number] #### [facility] (DEFAULT) [address] [place] [address] 79707 Alk Phos 106 IU/L High 32-91 [facility] Comment on above: Performed By: #### 1 [id number], [id number], [id number] #### [facility] (DEFAULT) [address] [place] [address] 63184 ALT/SGPT 46.0 IU/L Normal 17.0-63.0 [facility] Comment on above: Performed By: #### 1 [id number], [id number], [id number] #### [facility] (DEFAULT) [address] [place] [address] 39125 Anion gap [Moles/Vol] 12.0 mmol/L Normal 5.0-19.0 [facility] Comment on above: Performed By: #### 1 [id number], [id number], [id number] #### [facility] (DEFAULT) [address] [place] [address] 95431 AST/SGOT 33 IU/L Normal 15-41 [facility] Comment on above: Performed By: #### 1 [id number], [id number], [id number] #### [facility] (DEFAULT) [address] [place] [address] 05154 Bili Total 0.5 mg/dL Normal 0.3-1.2 [facility] Comment on above: Performed By: #### 1 [id number], [id number], [id number] #### [facility] (DEFAULT) [address] [place] [address] 40588 Calcium [Mass/Vol] 8.6 mg/dL Low 8.9-10.3 [facility] Comment on above: Performed By: #### 1 [id number], [id number], [id number] #### [facility] (DEFAULT) [address] [place] [address] 03238 Chloride [Moles/Vol] 104 mmol/L Normal 101-111 [facility] Comment on above: Performed By: #### 1 [id number], [id number], [id number] #### [facility] (DEFAULT) [address] [place] [address] 75610 CO2 [Moles/Vol] 25 mmol/L Normal 21-32 [facility] Comment on above: Performed By: #### 1 [id number], [id number], [id number] #### [facility] (DEFAULT) [address] [place] [address] 20505 Creatinine [Mass/Vol] 0.93 mg/dL Normal 0.90-1.30 [facility] Comment on above: Performed By: #### 1 [id number], [id number], [id number] #### [facility] (DEFAULT) [address] [place] [address] 75753 Globulin (S) [Mass/Vol] 4.3 g/dL Normal 1.5-4.3 [facility] Comment on above: Performed By: #### 1 [id number], [id number], [id number] #### [facility] (DEFAULT) [address] [place] [address] 16880 Glucose [Mass/Vol] 100.0 mg/dL Normal 74.0-118.0 [facility] Comment on above: Performed By: #### 1 [id number], [id number], [id number] #### [facility] (DEFAULT) [address] [place] [address] 29638 Osmolality [Osmolality] 275 mOsm/L [facility] Comment on above: Performed By: #### 1 [id number], [id number], [id number] #### [facility] (DEFAULT) [address] [place] [address] 38245 Potassium [Moles/Vol] 4.3 mmol/L Normal 3.6-5.1 [facility] Comment on above: Performed By: #### 1 [id number], [id number], [id number] #### [facility] (DEFAULT) [address] [place] [address] 40872 Protein [Mass/Vol] 7.9 g/dL Normal 6.5-8.1 [facility] Comment on above: Performed By: #### 1 [id number], [id number], [id number] #### [facility] (DEFAULT) [address] [place] [address] 56109 Sodium [Moles/Vol] 137.0 mmol/L Normal 136.0-144.0 [facility] Comment on above: Performed By: #### 1 [id number], [id number], [id number] #### [facility] (DEFAULT) [address] [place] [address] 57397 Urea nitrogen [Mass/Vol] 15 mg/dL Normal 8-26 [facility] Comment on above: Performed By: #### 1 [id number], [id number], [id number] #### [facility] (DEFAULT) [address] [place] [address] 43851 Urea nitrogen/Creatinine [Mass ratio] 16.0 mg/mg Normal 4.6-16.2 [facility] Comment on above: Performed By: #### 1 [id number], [id number], [id number] #### [facility] (DEFAULT) [address] [place] [address] 00983 Vital Signs Date Time Vital Sign Value Performing Clinician Navid ramirez 09-04-2022 14:27-0500 Blood Pressure Location Niranjan WHITING [facility] 09-04-2022 14:27-0500 Diastolic blood pressure 62 mm[Hg] Niranjan WHITING [facility] 09-04-2022 14:27-0500 Heart rate 66 /min Niranjan WHITING [facility] 09-04-2022 14:27-0500 Systolic blood pressure 132 mm[Hg] Niranjan WHITING [facility] Encounters Encounter Date Encounter Type Care Provider Facility Start: 09-04-2023 Clinisync Result Encounter Generic External Data Provider [facility] Unsolicited Start: 09-04-2023 Clinisync Result Encounter Generic External Data Provider [facility] Unsolicited Start: 08-25-2023 End: 08-26-2023 ambulatory Niranjan WHITING Facility[facility] Start: 08-25-2023 End: 08-26-2023 ambulatory Niranjan WHITING Facility:[facility] [place] Start: 08-25-2023 End: 08-25-2023 Lab Drop off Niranjan WHITING [facility] Start: 08-12-2023 End: 08-12-2023 ambulatory OSMAR ELDER Not Available Start: 07-29-2023 End: 07-30-2023 ambulatory Niranjan WHITING Facility:[facility] [place] Start: 07-29-2023 End: 07-29-2023 Patient encounter procedure Niranjan WHITING [facility] [place] Start: 05-20-2023 End: 05-21-2023 ambulatory ELISABETH NAGEL Facility:[facility] [place] Start: 09-04-2022 End: 09-04-2022 Patient encounter procedure Niranjan WHITING [facility] [place] Procedures Date Procedure Procedure Detail Performing Clinician Start: 09-04-2023 ALL CBC WITH AUTO DIFF Generic External Data Provider Start: 07-29-2023 Transurethral cystoscopy Niranjan WHITING Start: 01-28-2017 Endoscopic transuret hral fulguration of prostate Niranjan WHITING Start: 12-06-2016 Cystoscopy Niranjan YUAN Appendectomy Niranjan WHITING Arthroscopic knee operation Niranjan WHITING Cholecystectomy Niranjan SINGH 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 rezum Niranjan WHITING Plan of Treatment Date Care Activity Detail Author Start: 08-12-2024 Medicare Annual Wellness (AWV) Medicare Annual Wellness (AWV) [facility] Start: 02-10-2024 End: 02-10-2024 Patient encounter procedure 02/10/2024 2:00 PM EDT Office Visit [facility] [address] [place] [id number] Osmar Elder MD [address] [place] [address] [facility] Start: 10-08-2023 ambulatory Ambulatory Facility:[facility] [place] Start: 09-23-2023 ambulatory Ambulatory Facility:[facility] [place] Start: 09-18-2023 ambulatory Ambulatory Facility:[facility] D:[id number] Immunizations Immunization Date Immunization Notes Care Provider Juliet acuna 04-25-2023 influenza virus vacc ine, unspecified formulation Niranjan WHITING [facility] 04-25-2023 Influenza, High-dose Seasonal, Quadrivalent, Preservative Free Generic Provider [facility] 04-24-2022 SARS-CoV-2 (COVID-19 ) [id number] Niranjan WHITING [facility] 04-24-2022 SARS-CoV-2, Unspecified Generic Prov ider [facility] 04-04-2022 tetanus toxoid, redu malik diphtheria toxoid, and acellular pertussis vaccine, adsorbed Niranjan WHITING [facility] 03-28-2022 influenza virus vacc ine, unspecified formulation Niranjan WHITING [facility] 03-28-2022 influenza, high dose seasonal, preservative-free Generic Provider [facility] 11-08-2021 SARS-CoV-2 mRNA (ysrrelnjanf-xmqx-btbyst e) vaccine Niranjan WHITING [facility] Comment on above: Result Comment: 2021: [id number] 05-07-2021 SARS-CoV-2 (COVID-19 ) mRNA BNT-162b2 vax Niranjan WHITING [facility] Comment on above: Result Comment: 2021: [id number] 04-18-2021 influenza virus vacc ine, unspecified formulation Niranjan WHITING [facility] 04-18-2021 influenza, high dose seasonal, preservative-free Generic Provider [facility] 01-30-2021 tetanus and diphther ia toxoids, adsorbed, preservative free, for adult use (5 Lf of tetanus toxoid and 2 Lf of diphtheria toxoid) Generic Provider [facility] 08-30-2020 SARS-CoV-2 (COVID-19 ) mRNA BNT-162b2 vax Niranjan WHITING [facility] Comment on above: Result Comment: 2021: [id number] 08-09-2020 SARS-CoV-2 (COVID-19 ) mRNA BNT-162b2 vax [employer] [facility] Comment on above: Result Comment: 2021: [id number] 04-07-2020 influenza virus vacc ine, unspecified formulation [employer] [facility] 04-07-2020 Seasonal trivalent influenza vaccine, adjuvanted, preservative free Generic Provider [facility] 04-19-2019 influenza virus vacc ine, unspecified formulation [employer] [facility] 04-19-2019 Seasonal trivalent influenza vaccine, adjuvanted, preservative free Generic Provider [facility] 05-07-2018 zoster vaccine recombinant Niranjan [employer] [facility] 05-04-2018 influenza virus vacc ine, unspecified formulation Niranjan [employer] [facility] 05-04-2018 Seasonal trivalent influenza vaccine, adjuvanted, preservative free Generic Provider [facility] 02-18-2018 zoster vaccine recombinant Niranjan [employer] [facility] 04-29-2017 influenza virus vacc ine, unspecified formulation [employer] [facility] 04-16-2016 influenza virus vacc ine, unspecified formulation [employer] [facility] 01-10-2015 pneumococcal conjuga te vaccine, 13 valent Generic Provider [facility] 01-07-2014 pneumococcal polysaccharide vaccine, 23 valent Generic Provider [facility] 01-07-2014 pneumococcal vaccine , unspecified formulation Generic Provider [facility] 07-17-2013 zoster vaccine, live Generic Provide r [facility] 05-21-2000 pneumococcal polysaccharide vaccine, 23 valent Niranjan WHITING [facility] 07-21-1988 pneumococcal polysaccharide vaccine, 23 valent Generic Provider [facility] 07-21-1988 pneumococcal vaccine , unspecified formulation Generic Provider [facility] Healthcare Payers Date Payer Category Payer Medicare [id number] 2022 Medicare [id number] 1934 Unknown [id number] 1934 Unknown [id number] 2.16.8 [id number] 1934 Unknown [id number] 2.16.8 [id number] 1934 Unknown [id number] 2.16.8 [id number] 1934 Unknown [id number] 2.16.8 [id number] 1934 Unknown [id number] 2.16.8 [id number] 1934 Unknown [id number] 2.16.8 [id number] Social History Date Type Detail Facility Start: 09-04-2022 End: 08-12-2023 Tobacco smoking status Ex-smoker (finding) [facility] Start: 04-23-2023 Tobacco smoking status Never [facility] Start: 08-12-2023 Sex Assigned At Male F [facility] End: 07-21-1965 History of tobacco use Current smoker [facility] End: 07-21-1965 History of tobacco use Cigarette Smoker [facility] Start: 08-12-2023 Tobacco use and exposure Smokeless tobacco non-user [facility] Start: 08-12-2023 Alcohol intake Ex-drinker (finding) [facility] Start: 08-12-2023 History of Social function [facility] How often to you hav e a drink containing alcohol? Monthly or less [facility] How many standard drinks containing alcohol do you have on a typical day? 1 or 2 [facility] How often do you hav e 6 or more drinks on 1 occasion? Never [facility] Start: 03-05-2023 Alcohol Comment caffeine- 1 to 2 cups of coffee per day [facility] Start: 1935 Sex Assigned At Not on file [facility] Start: 10-02-2022 Gender identity Identifies as male gender (finding) [facility] Functional Status Date Assessment Result Facility 07-29-2023 Functional Status N/A [facility] 09-04-2022 Functional Status N/A [facility] Hospital Discharge instructions 07-29-2023 Note Date & Type Note Facility 07-29-2023 Hospital Discharg e instructions Patient Education 07/29/2023 14:38:18 Transurethral Resection of the Prostate, Care After Transurethral Resection of the Prostate, Care After The following information offers guidance on how to care for yourself after your procedure. Your health care provider may also give you more specific instructions. If you have problems or questions, contact your health care provider. What can I expect after the procedure? After the procedure, it is common to have: Mild pain in your lower abdomen. Soreness or mild discomfort in your penis or when you urinate. This is from having the catheter inserted during the procedure. A sudden urge to urinate (urgency). A need to urinate often. A small amount of blood in your urine. You may notice some small blood clots in your urine. These are normal. Follow these instructions at home: Medicines Take raij-yhd-pmvbkev and prescription medicines only as told by your health care provider. If you were prescribed an antibiotic medicine, take it as told by your health care provider. Do not stop taking the antibiotic even if you start to feel better. Activity Rest as told by your health care provider. Avoid sitting for a long time without moving. Get up to take short walks every 1 2 hours. This is important to improve blood flow and breathing. Ask for help if you feel weak or unsteady. You may increase your physical activity gradually as you start to feel better. Do not drive or operate machinery until your health care provider says that it is safe. Do not ride in a car for long periods of time, or as told by your health care provider. Avoid intense physical activity for as long as told by your health care provider. Do not lift anything that is heavier than 10 lb (4.5 kg), or the limit that you are told, until your health care provider says that it is safe. Do not have sex until your health care provider approves. Return to your normal activities as told by your health care provider. Ask your health care provider what activities are safe for you. Preventing constipation You may need to take these actions to prevent or treat constipation: Drink enough fluid to keep your urine pale yellow. Take abdq-wrp-zasrdzy or prescription medicines. Eat foods that are high in fiber, such as beans, whole grains, and fresh fruits and vegetables. Limit foods that are high in fat and processed sugars, such as fried or sweet foods. General instructions Do not strain when you have a bowel movement. Straining may lead to bleeding from the prostate. This may cause blood clots and trouble urinating. Do not use any products that contain nicotine or tobacco. These products include cigarettes, chewing tobacco, and vaping devices, such as e-cigarettes. If you need help quitting, ask your health care provider. If you go home with a tube draining your urine (urinary catheter), care for the catheter as told by your health care provider. Wear compression stockings as told by your health care provider. These stockings help to prevent blood clots and reduce swelling in your legs. Keep all follow-up visits. This is important. Contact a health care provider if: You have signs of infection, such as: ?Fever or chills. ?Urine that smells very bad. ?Swelling around your urethra that is getting worse. ?Swelling in your penis or testicles. You have difficulty urinating. You have pain that gets worse or does not improve with medicine. You have blood in your urine that does not go away after 1 week of resting and drinking more fluids. You have trouble having a bowel movement. You have trouble having or keeping an erection. No semen comes out during orgasm (dry ejaculation). You have a urinary catheter in place, and you have: ?Spasms or pain. ?Problems with your catheter or your catheter is blocked. Get help right away if: You are unable to urinate. You are having more blood clots in your urine instead of fewer. You have: ?Large blood clots. ?A lot of blood in your urine. ?Pain in your back or lower abdomen. You have difficulty breathing or shortness of breath. You develop swelling or pain in your leg. These symptoms may be an emergency. Get help right away. Call 911. Do not wait to see if the symptoms will go away. Do not drive yourself to the hospital. Summary After the procedure, it is common to have a small amount of blood in your urine. Follow restrictions about lifting and sexual activity as told by your health care provider. Ask what activities are safe for you. Keep all follow-up visits. This is important. This information is not intended to replace advice given to you by your health care provider. Make sure you discuss any questions you have with your health care provider. Document Revised: 04/02/2022 Document Reviewed: 04/02/2022 [employer] Patient Education 2022 [employer]. 07/29/2023 14:38:17 Transurethral Resection of the Prostate Transurethral Resection of the Prostate Transurethral resection of the prostate (TURP) is the removal, or resection, of part of the prostate tissue. This procedure is done to treat an enlarged prostate gland (benign prostatic hyperplasia). The goal of TURP is to remove enough prostate tissue to allow for a normal flow of urine. The procedure will allow you to empty your bladder more completely when you urinate so that you can urinate less often. In a transurethral resection, a thin telescope with a light, a camera, and an electric cutting edge (resectoscope) is passed through the urethra and into the prostate. The opening of the urethra is at the end of the penis. Tell a health care provider about: Any allergies you have. All medicines you are taking, including vitamins, herbs, eye drops, creams, and belg-zfa-coodmrs medicines. Any problems you or family members have had with anesthetic medicines. Any bleeding problems you have. Any surgeries you have had. Any medical conditions you have. Any prostate infections you have had. What are the risks? Generally, this is a safe procedure. However, problems may occur, including: Infection. Bleeding. Allergic reactions to medicines. Blood in the urine (hematuria). Damage to nearby structures or organs. Other problems may occur, but they are rare. They include: Dry ejaculation, or having no semen come out during orgasm. Erectile dysfunction, or being unable to have or keep an erection. Scarring that leads to narrowing of the urethra. This narrowing may block the flow of urine. Inability to control when you urinate (incontinence). Deep vein thrombosis. This is a blood clot that can develop in your leg. TURP syndrome. This can happen when you lose too much sodium during or after the procedure. Some signs and symptoms of this condition include: ?Weakness. ?Headaches. ?Nausea or vomiting. ?Muscle cramping. What happens before the procedure? When to stop eating and drinking Follow instructions from your health care provider about what you may eat and drink before your procedure. These may include: 8 hours before your procedure ?Stop eating most foods. Do not eat meat, fried foods, or fatty foods. ?Eat only light foods, such as toast or crackers. ?All liquids are okay except energy drinks and alcohol. 6 hours before your procedure ?Stop eating. ?Drink only clear liquids, such as water, clear fruit juice, black coffee, plain tea, and sports drinks. ?Do not drink energy drinks or alcohol. 2 hours before your procedure ?Stop drinking all liquids. ?You may be allowed to take medicines with small sips of water. If you do not follow your health care provider's instructions, your procedure may be delayed or canceled. Medicines Ask your health care provider about: Changing or stopping your regular medicines. This is especially important if you are taking diabetes medicines or blood thinners. Taking medicines such as aspirin and ibuprofen. These medicines can thin your blood. Do not take these medicines unless your health care provider tells you to take them. Taking dgnr-zcu-ftqcjyv medicines, vitamins, herbs, and supplements. Surgery safety Ask your health care provider what steps will be taken to help prevent infection. These steps may include: Removing hair at the surgery site. Washing skin with a germ-killing soap. Taking antibiotic medicine. General instructions Do not use any products that contain nicotine or tobacco for at least 4 weeks before the procedure. These products include cigarettes, chewing tobacco, and vaping devices, such as e-cigarettes. If you need help quitting, ask your health care provider. If you will be going home right after the procedure, plan to have a responsible adult: ?Take you home from the hospital or clinic. You will not be allowed to drive. ?Care for you for the time you are told. What happens during the procedure? An IV will be inserted into one of your veins. You will be given one or more of the following: ?A medicine to help you relax (sedative). ?A medicine to make you fall asleep (general anesthetic). ?A medicine that is injected into your spine to numb the area below and slightly above the injection site (spinal anesthetic). Your legs will be placed in foot rests (stirrups) so that your legs are apart and your knees are bent. The resectoscope will be passed through your urethra to your prostate. Parts of your prostate will be resected using the cutting edge of the resectoscope. Fluid will be passed to rinse out the cut tissues (irrigation). The resectoscope will be removed. A small, thin tube (catheter) will be passed through your urethra and into your bladder. The catheter will drain urine into a bag outside of your body. The procedure may vary among health care providers and hospitals. What happens after the procedure? Your blood pressure, heart rate, breathing rate, and blood oxygen level will be monitored until you leave the hospital or clinic. You will be given fluids through the IV. The IV will be removed when you start eating and drinking normally. You may have some pain. Pain medicine will be available to help you. You will have a catheter draining your urine. ?You may have blood in your urine. Your catheter may be kept in until your urine is clear. ?Your urinary drainage will be monitored. If necessary, your bladder may be rinsed out (irrigated) through your catheter. You will be encouraged to walk around as soon as possible. You may have to wear compression stockings. These stockings help to prevent blood clots and reduce swelling in your legs. If you were given a sedative during the procedure, it can affect you for several hours. Do not drive or operate machinery until your health care provider says that it is safe. Summary Transurethral resection of the prostate (TURP) is the removal (resection) of part of the prostate tissue. The goal of this procedure is to remove enough prostate tissue to allow for a normal flow of urine. Follow instructions from your health care provider about taking medicines and about eating and drinking before the procedure. This information is not intended to replace advice given to you by your health care provider. Make sure you discuss any questions you have with your health care provider. Document Revised: 04/02/2022 Document Reviewed: 04/02/2022 [employer] Patient Education 2022 [employer]. Follow Up Care 05/28/2023 15:14:18 With:ERIC CROFT, Niranjan Hugo, URL Address: [facility] [address] , [place] [phone] When: Unknown Comments:sched TURP [facility] Clinical Note 05-20-2023 Note Date & Type Note Facility 05-20-2023 Note Urology Cystoscopy Cystoscopy is a procedure that is used to help diagnose and sometimes treat conditions that affect the lower urinary tract. The lower urinary tract includes the bladder and the urethra. The urethra is the tube that drains urine from the bladder. Cystoscopy is done using a thin, tube-shaped instrument with a light and camera at the end (cystoscope). The cystoscope may be hard or flexible, depending on the goal of the procedure. The cystoscope is inserted through the urethra, into the bladder. Cystoscopy may be recommended if you have: ? Urinary tract infections that keep coming back. ? Blood in the urine (hematuria). ? An inability to control when you urinate (urinary incontinence) or an overactive bladder. ? Unusual cells found in a urine sample. ? A blockage in the urethra, such as a urinary stone. ? Painful urination. ? An abnormality in the bladder found during an intravenous pyelogram (IVP) or CT scan. Cystoscopy may also be done to remove a sample of tissue to be examined under a microscope (biopsy). Tell a health care provider about: ? Any allergies you have. ? All medicines you are taking, including vitamins, herbs, eye drops, creams, and spmj-lfk-cebwidb medicines. ? Any problems you or family members have had with anesthetic medicines. ? Any blood disorders you have. ? Any surgeries you have had. ? Any medical conditions you have. ? Whether you are or may be . What are the risks? Generally, this is a safe procedure. However, problems may occur, including: ? Infection. ? Bleeding. ? Allergic reactions to medicines. ? Damage to other structures or organs. What happens before the procedure? Medicines Ask your health care provider about: ? Changing or stopping your regular medicines. This is especially important if you are taking diabetes medicines or blood thinners. ? Taking medicines such as aspirin and ibuprofen. These medicines can thin your blood. Do not take these medicines unless your health care provider tells you to take them. ? Taking qqwp-ihb-xvbjkhj medicines, vitamins, herbs, and supplements. Tests You may have an exam or testing, such as: ? X-rays of the bladder, urethra, or kidneys. ? CT scan of the abdomen or pelvis. ? Urine tests to check for signs of infection. General instructions ? Follow instructions from your health care provider about eating or drinking restrictions. ? Ask your health care provider what steps will be taken to help prevent infection. These steps may include: ? Washing skin with a germ-killing soap. ? Taking antibiotic medicine. ? Plan to have a responsible adult take you home from the hospital or clinic. What happens during the procedure? ? You will be given one or more of the following: ? A medicine to help you relax (sedative). ? A medicine to numb the area (local anesthetic). ? The area around the opening of your urethra will be cleaned. ? The cystoscope will be passed through your urethra into your bladder. ? Germ-free (sterile) fluid will flow through the cystoscope to fill your bladder. The fluid will stretch your bladder so that your health care provider can clearly examine your bladder chisholm. ? Your doctor will look at the urethra and bladder. Your doctor may take a biopsy or remove stones. ? The cystoscope will be removed, and your bladder will be emptied. The procedure may vary among health care providers and hospitals. What can I expect after the procedure? After the procedure, it is common to have: ? Some soreness or pain in your abdomen and urethra. ? Urinary symptoms. These include: ? Mild pain or burning when you urinate. Pain should stop within a few minutes after you urinate. This may last for up to 1 week. ? A small amount of blood in your urine for several days. ? Feeling like you need to urinate but producing only a small amount of urine. Follow these instructions at home: Medicines ? Take mpje-wnk-yegvein and prescription medicines only as told by your health care provider. ? If you were prescribed an antibiotic medicine, take it as told by your health care provider. Do not stop taking the antibiotic even if you start to feel better. General instructions ? Return to your normal activities as told by your health care provider. Ask your health care provider what activities are safe for you. ? If you were given a sedative during the procedure, it can affect you for several hours. Do not drive or operate machinery until your health care provider says that it is safe. ? Watch for any blood in your urine. If the amount of blood in your urine increases, call your health care provider. ? Follow instructions from your health care provider about eating or drinking restrictions. ? If a tissue sample was removed for testing (biopsy) during your procedure, it is up to you to get your test results. Ask your health care provider, or the department th (more content not included)... [facility] Hospital Discharge instructions 09-04-2022 Note Date & Type Note Facility 09-04-2022 Hospital Discharg e instructions Patient Education 09/04/2022 15:00:20 Infection Prevention in the Home Infection Prevention in the Home If you have an infection, may have been exposed to an infection, or are taking care of someone who has an infection, it is important to know how to keep the infection from spreading. Follow your health care provider's instructions and use these guidelines to help stop the spread of infection. How infections are spread In order for an infection to spread, the following must be present: A germ. This may be a virus, bacteria, fungus, or parasite. A place for the germ to live. This may be: ?On or in a person, animal, plant, or food. ?In soil or water. ?On surfaces, such as a door handle. A person or animal who can develop a disease if the germ enters the body (host). The host does not have resistance to the germ. A way for the germ to enter the host. This may occur by: ?Direct contact with an infected person or animal. This can happen through shaking hands or hugging. Some germs can also travel through the air and spread to others. This can happen when an infected person coughs or sneezes on or near other people. ?Indirect contact. This occurs when the germ enters the host through contact with an infected object. Examples include: ?Eating or drinking food or water that has the germ (is contaminated). ?Touching a contaminated surface with your hands, and then touching your face, eyes, nose, or mouth. Supplies needed: Soap. Alcohol-based hand broadcast journalist. Standard cleaning products. Disinfectants, such as bleach. Reusable cleaning cloths, sponges, or paper towels. Disposable or reusable utility gloves. How to prevent infection from spreading There are several things that you can do to help prevent infection from spreading. Take these general actions Everyone should take the following actions to prevent the spread of infection: Wash your hands often with soap and water for at least 20 seconds. If soap and water are not available, use alcohol-based hand broadcast journalist. Avoid touching your face, mouth, nose, or eyes. Cough or sneeze into a tissue, sleeve, or elbow instead of into your hand or into the air. ?If you cough or sneeze into a tissue, throw it away immediately and wash your hands. Keep your bathroom clean Provide soap. Change towels and washcloths frequently. Change toothbrushes often and store them separately in a clean, dry place. Clean and disinfect all surfaces, including the toilet, floor, tub, shower, and sink. Do not share personal items, such as razors, toothbrushes, deodorant, hood, brushes, towels, and washcloths. Maintain hygiene in the kitchen Wash your hands before and after preparing food and before you eat. Clean the inside of your refrigerator each week. Keep your refrigerator set at 40 F (4 C) or less, and set your freezer at 0 F ( 18 C) or less. Keep work surfaces clean. Disinfect them regularly. Wash your dishes in hot, soapy water. Air-dry your dishes or use a continuous crusher operator. Do not share dishes or eating utensils. Handle food safely Store food carefully. Refrigerate leftovers promptly in covered containers. Throw out stale or spoiled food. Thaw foods in the refrigerator or microwave, not at room temperature. Serve foods at the proper temperature. Do not eat raw meat. Make sure it is cooked to the appropriate temperature. Cook eggs until they are firm. Wash fruits and vegetables under running water. Use separate cutting boards, plates, and utensils for raw foods and cooked foods. Use a clean spoon each time you sample food while cooking. Do laundry the right way Wear gloves if laundry is visibly soiled. Do not shake soiled laundry. Doing that may send germs into the air. Wash laundry in hot water. If you cannot wash the laundry right away, place it in a plastic bag and wash it as soon as possible. Be careful around animals and pets Wash your hands before and after touching animals. If you have a pet, ensure that your pet stays clean. Do not let people with weak immune systems touch bird droppings, fish tank water, or a litter box. ?If you have a pet cage or litter box, be sure to clean it every day. If you are sick, stay away from animals and have someone else care for them if possible. How to clean and disinfect objects and surfaces Precautions Some disinfectants work for certain germs and not others. Read the puppet engineer's instructions or read online resources to determine if the product you are using will work for the germ you are trying to remove. If you choose to use bleach, use it safely. Never mix it with other cleaning products, especially those that contain ammonia. This mixture can create a dangerous gas that may be deadly. Keep proper movement of fresh air in your home (ventilation). Pour used mop water down the utility sink or toilet. Do not pour this water down the kitchen sink. Objects and surfaces If surfaces are visibly soiled, clean them first with soap and water before disinfecting. Disinfect surfaces that are frequently touched every day. This may include: ?Counters. ?Tables. ?Doorknobs. ?Sinks and faucets. ?Electronics, such as: ?Phones. ?Remote controls. ?Keyboards. ?Computers and tablets. Cleaning supplies Some cleaning supplies can breed germs. Take good care of them to prevent germs from spreading. To do this: Soak toilet brushes, mops, and sponges in bleach and water for 5 minutes after each use, or according to puppet engineer's instructions. Wash reusable cleaning cloths and sanitize sponges after each use. Throw away disposable gloves after one use. Replace reusable utility gloves if they are cracked or torn or if they start to peel. Additional actions if you are sick If you live with other people: Avoid close contact with those around you. Stay at least 3 ft (1 m) away from others, if possible. Use a separate bathroom, if possible. If possible, sleep in a separate bedroom or in a separate bed to prevent infecting other household members. ?Change bedroom linens each week or whenever they are soiled. Have everyone in the household wash hands often with soap and water. If soap and water are not available, use alcohol-based hand broadcast journalist. In general: Stay home except to get medical care. Call ahead before visiting your health care provider. Ask others to get groceries and household supplies and to refill prescriptions for you. Avoid public areas. Try not to take public transportation. If you can, wear a mask if you need to go out of the house, or if you are in close contact with someone who is not sick. Avoid visitors until you have completely recovered, or until you have no signs and symptoms of infection. Avoid preparing food or providing care for others. If you must prepare food or provide care for others, wear a mask and wash your hands before and after doing these things. Where to find more information Centers for Disease Control and Prevention: www.cdc.gov/nonpharmaceutical- interventions/index.html World Health Organization (WHO): www.who.int/infection-preventi on/about/en/ Association for Professionals in Infection Control and Epidemiology: professionals.site.apic.org/se mpsnxc-zg-sxyd/non-healthcare- setting/home/ Summary It is important to know how to keep the infection from spreading. Make sure everyone in your household washes their hands often with soap and water. Disinfect surfaces that are frequently touched every day. If you are sick, stay home except to get medical care. This information is not intended to replace advice given to you by your health care provider. Make sure you discuss any questions you have with your health care provider. Document Released: 04/15/2009 Document Revised: 11/02/2019 Document Reviewed: 10/01/2019 [employer] Patient Education 2019 [employer]. Follow Up Care 06/05/2022 12:20:43 With:ERIC CROFT, Niranjan Hugo, URL Address: [facility] [address], [place] [address]- When: only if needed Comments:PRN [facility] Evaluation + Plan note Note Date & Type Note Facility Evaluation + Plan note No data available for this section [facility] Evaluation + Plan note Note Date & Type Note Facility Evaluation + Plan note Future Appointments Appointment Date:09/23/2023 11:30:00 AM Scheduled Provider: Location:[facility] Appointment Type:URO Nurse Visit Appointment Date:10/08/2023 02:15:00 PM Scheduled Provider:Niranjan WHITING MD Location:[facility] Appointment Type:URO Office Visit Diagnostic Tests PendingUrine Culture 08/25/23 [facility] Hospital Discharge instructions Note Date & Type Note Facility Hospital Discharge instructions No data available for this section [facility] Progress note Note Date & Type Note Facility Progress note No data available for this section [facility] RiGHT BRAiN MEDiA Summary Purpose Family History No Family History Records FoundNo Family History Records FoundNo Family History Records Found No data available for this section No Family History Records Found No data available for this section No Family History Records Found Advance Directives No Advanced Directives Records FoundNo Advanced Directives Records FoundNo Advanced Directives Records FoundNo Advanced Directives Records FoundNo Advanced Directives Records Found Additional Source Comments (unrecognized sect ion and content) No Status Records FoundNo Status Records FoundNo Status Records FoundNo Status Records FoundNo Status Records Found INFORMATION SOURCE (unrecogn ized section and content) DATE CREATED AUTHOR 06/13/2020 [facility] DATE CREATED AUTHOR AUTHOR'S ORGANIZ ATION 08/23/2021 [facility] DATE CREATED AUTHOR AUTHOR'S ORGANIZ ATION 03/13/2022 [facility] DATE CREATED AUTHOR AUTHOR'S ORGANIZ ATION 08/13/2023 [facility] EPIC DATE CREATED AUTHOR AUTHOR'S ORGANIZ ATION 09/07/2023 Rufino Law [facility] Patient Care team informatio n (unrecognized section and content) 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 Relationship Specialty Start Date End Date Osmar Elder MD [address] [place] [address] PCP - [employer] 07/21/21 Osmar Elder MD [address] [place] [address] PCP - General Internal Medicine 11/26/22 Ramos Núñez MD [address] [place] [address] Referring Physician Orthopaedic Surgery 08/08/23 Dang Warren MD [address] [place] [address], [place] [address] Referring Physician Family Medicine 08/12/23 Elisabeth Plaza MD [address] [place] [address] Referring Physician Dermatology 08/12/23 Martha Dominguez MD [address] [place] [address] Ophthalmology 08/08/23 FOR RECORDS PERTAINING TO PATIENTS WHO ARE OR HAVE BEEN ENROLLED IN A CHEMICAL DEPENDENCY/SUBSTANCEABUSE PROGRAM, SOME INFORMATION MAY BE OMITTED. This clinical summary was aggregated from multiple sources. Caution should be exercised in using it in the provision of clinical care. This summary normalizes information from multiple sources, and as a consequence, information in this document may materially change the coding, format and clinical context of patient data. In addition, data may be omitted in some cases. CLINICAL DECISIONS SHOULD BE BASED ON THE PRIMARY CLINICAL RECORDS. [employer] provides no warranty or guarantee of the accuracy or completeness of information in this document.
[2023-09-18] MEDS: LACTATED RINGER'S SOLUTION 1,000 ML 50 ML IV (09:51)
[2023-09-18] MEDS: LEVOFLOXACIN IN DEXTROSE 5 % 500 MG/100 ML PIGGYBACK 100 MG IV (11:51)
--- NOTE | 2023-09-18 13:17 | P.URON_ITS ---
Urology Surgery Operative Note Operative Note Procedure Date: 09/18/23 Time Out Performed: yes Pre-op Diagnosis: BPH with LUTS Procedures performed: 1. Cystoscopy. 2. Transurethral resection of the prostate. Anesthesia: SUZI Primary Surgeon: Niranjan Whiting Complications: None Estimated blood loss (mL): 10 Findings: By lobar obstruction of the prostate and high-grade bladder damage Specimens: Prostate chips Drains: 22 Kittitian three-way coud? Valdivia in the bladder to traction and CBI Indications for Procedures: This gentleman has BPH with LUTS. He had a Rezum procedure 6 to 7 years ago. He did very well from that. 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 He is desirous for TURP. He has signed an informed consent for this procedure after all risks were explained. Some of these risks include bleeding, infection, anesthesia, retrograde ejaculation, urinary incontinence both temporary and permanent, erectile dysfunction and possible need for further operations to name a few. Detailed description of Procedure: The patient was brought to the operating room and placed on the operating room table in the supine position. SCDs were placed on the lower extremities and turned on and functioning during the entire case. Timeout was done by all parties in the room. We all agreed upon the patient's identification and the planned procedures for this patient. Genn. anesthesia was then administered. The patient was then repositioned into the modified dorsal lithotomy position. All pressure points were satisfactorily padded. Genitalia were sterilely prepped and draped in usual fashion. I started by passing a 26 Kittitian Olympus resectoscope with a standard bipolar loop electrode per urethra and into the bladder. The ureteral orifices were marked with the loop electrode. I then uniformly resected the median lobe down to the bladder neck level. I then resected posteriorly from the bladder neck to the Veru. The left lateral lobe was then resected from the bladder neck to the Veru level as well as the right lateral lobe and the anterior tissue. The apex was then opened up. I then used a rollerball electrode and coagulated the entire resection bed. The Ilich evacuator was used a few times to get all of the prostate chips out of the bladder. These were sent for permanent sections. With the scope at the apex, the prostatic urethra and bladder neck were now wide open. There was no bleeding. There were no chips in the bladder. The scope was then removed. I then placed a 22 Kittitian three-way coud? Valdivia catheter in the bladder. 30 cc of fluid was placed in the balloon. It was taped to traction and CBI was started. It irrigated clear to pink. The anesthetic was then reversed. He was then transferred to a [facility] bed and wheeled to PACU in stable condition. Urinary Catheter Management Urinary Catheter Management Urethral: Cath placed during this visit: no
[2023-09-18] MEDS: SOLIFENACIN SUCCINATE 10 MG TABLET PO (13:27)
[2023-09-18] MEDS: 0.9 % SODIUM CHLORIDE 1,000 ML 80 ML IV (13:27)
[2023-09-18] MEDS: SODIUM CHLORIDE IRRIG SOLUTION 3,000 ML 3000 ML IRR ×7 (14:39→23:22)
[2023-09-18] MEDS: CEFAZOLIN SODIUM/DEXTROSE,ISO 1 GM/50 ML IV.SOLN IV ×2 (16:29→21:29)
--- NOTE | 2023-09-18 20:00 | PC.NURSE ---
pink tinge in color
[2023-09-19 00:31] VITALS: BP 109/56; PULSE 66; RESP 18; TEMP 36.3; O2SAT 95
[2023-09-19] MEDS: SODIUM CHLORIDE IRRIG SOLUTION 3,000 ML 3000 ML IRR ×2 (02:04→03:32)
[2023-09-19] MEDS: 0.9 % SODIUM CHLORIDE 1,000 ML 80 ML IV (02:06)
[2023-09-19 04:58] VITALS: BP 123/65; PULSE 69; RESP 18; TEMP 36.5; O2SAT 93
--- NOTE | 2023-09-19 05:17 | PC.NURSE ---
Traction removed from CBI.Patient tolerated well and only complaint is heartburn. Urine pale yellow in color.
--- NOTE | 2023-09-19 06:34 | PC.NURSE ---
CBI removed and leg bag attached. Education and demonstration provided and patient was understandable. Ambulated bustamante. Patient tolerated well and only complaint was gas discomfort. Patient burped several times and stated he also passed gas. Patient sitting in chair. Urine light pink in olor
[2023-09-19 08:01] VITALS: BP 123/68; PULSE 79; RESP 18; TEMP 36.6; O2SAT 96
[2023-09-19] MEDS: SOLIFENACIN SUCCINATE 10 MG TABLET PO (08:45)
== END 2023-09-19 12:17 | disposition home or self-care (01) ==
LOC: SURGOUT 13:12 → MS 13:50
PROVIDERS: PCP Internal Medicine; Visit Provider Urology
PROC: (CPT 52601; principal; 2023-09-18 10:40)
DX: N40.1 Benign prostatic hyperplasia with lower urinary tract symptoms (principal); K21.9 Gastro-esophageal reflux disease without esophagitis; E29.1 Testicular hypofunction; I95.9 Hypotension, unspecified; R35.1 Nocturia; E78.5 Hyperlipidemia, unspecified; Z79.01 Long term (current) use of anticoagulants; F32.A Depression, unspecified; Z90.49 Acquired absence of other specified parts of digestive tract; Z87.891 Personal history of nicotine dependence; R35.0 Frequency of micturition; Z87.440 Personal history of urinary (tract) infections; Z87.442 Personal history of urinary calculi; N39.41 Urge incontinence; Z96.649 Presence of unspecified artificial hip joint
CPT/HCPCS: 52601; 36415; 88305; 99999; J1094; J2704